=== PATIENT | female | born 1970 | race American Indian/Alaskan Native ===

== ENCOUNTER 2018-09-04 11:03 | Outpatient (CLI) | payer BC ==
--- NOTE | 2018-09-04 13:48 | Ultrasound Report ---
ULTRASOUND OB LESS THAN 14 WEEKS THE FETUS ULTRASOUND OB TRANSVAGINAL History: Menorrhagia, positive test at doctor's office. Findings: Transabdominal and transvaginal ultrasound imaging was performed. The uterus measures 9 x 5 x 5 cm. A small intramural fibroid measuring 1.6 cm is noted in the anterior wall. The endometrial stripe is normal thickness. A small intrauterine gestational sac containing a small yolk sac was identified. No convincing pole or heart tones could be demonstrated. Gestational sac diameter measures 8.3 mm which correlates with a 5 week, 4 day . No subchorionic hemorrhage. The ovaries are normal size, contour and echotexture. No pelvic fluid collection. IMPRESSION: Early intrauterine is suspected and estimated at 5 weeks, 4 days. Close interval followup is recommended.
== END 2018-09-04 11:04 | disposition home or self-care (01) ==
LOC: US 11:03
DX: O09.91 Supervision of high risk pregnancy, unspecified, first trimester (principal); Z3A.01 Less than 8 weeks gestation of pregnancy
CPT/HCPCS: 76801; 76817

== ENCOUNTER 2020-06-16 08:52 | Outpatient (CLI) | payer BC ==
--- NOTE | 2020-06-19 08:31 | Mammography Report ---
DIGITAL SCREENING MAMMOGRAM WITH CAD, 06/16/2020 CLINICAL INFORMATION / INDICATION: Routine screening mammography. TECHNIQUE: Digital bilateral 2D mammography was obtained in the craniocaudal and mediolateral obliqu e projections. This examination was interpreted with the benefit of Computer-Aided Detection analysis . COMPARISON: None available. FINDINGS: Breast Density: There are scattered areas of fibroglandular density. No dominant mass, suspicious calcifications, or architectural distortion in either breast. IMPRESSION: No mammographic evidence of malignancy. Follow up recommendation: Routine yearly BI-RADS Category 1: Negative. A "normal" or negative report should not discourage follow up or biopsy of a clinically significant f inding. A written summary of these findings will be mailed to the patient. The patient will be entered into a mammography reporting system which will generate a reminder letter for the patient's next appointmen t at the appropriate interval. The [employer] recommends yearly mammograms starting at age 40 and continuing as l shana as a woman is in good health. Breast MRI is recommended for women with an approximate 20-25% or greater lifetime risk of breast cancer, including women with a strong family history of breast or ova edilberto cancer or who have been treated for Hodgkin's disease. Signer Name: Mina Boyd MD Signed: 06/19/2020 8:27 AM Workstation Name: [id number]
== END 2020-06-16 08:53 | disposition home or self-care (01) ==
LOC: SPVWC 08:52
PROVIDERS: ATTEND Obstetrics & Gynecology
DX: Z12.31 Encounter for screening mammogram for malignant neoplasm of breast (principal)
CPT/HCPCS: 77067

== ENCOUNTER 2020-09-08 07:44 | Observation (INO) | payer BC ==
--- NOTE | 2020-09-05 12:14 | History and Physical Report ---
History of Present Illness Date of examination: 09/01/20 Date of admission: 09/08/20 Chief complaint: referred by KELLEN History of present illness: Visit Type: Pre-Op CC: pre op. History of Present Illness: pt presents for pre op visit: Hysteroscopy, D&C, Myosure.. ....................................................................Janna Leo September 01, 2020 2:06 PM Mask, Patient denies fever, cough, shortness of breath and exposure to COVID-19. Patient is here for pre op for hysteroscopy with myosure removal of endometrial mass noted on hsg and SIS performed for KELLEN at [facility] on 05/19/20. It was recommened pt undergo hysteroscopic removal prior to proceeding with next step in fertilty treatment. She denies any changes in her periods and does not have any pain. All risk/benefits/alternatives were d/w pt and questions were addressed and answered. Consents were signed and presented to patient to bring to hospital at time of her procedure. Vital Signs: Patient Profile: 49 Years Old Female LMP: 08/04/2020 Height: 65 inches Weight: 252 pounds BMI: 41.93 Temp: 98.0 degrees F BP sittin / 82 (left arm) Menstrual History: LMP (date): 08/04/2020 Current Method of Contraception: None [OB-New Pt-Past Preg Hx-CCC] [employer] DISP[employer]ER History Uterine Surgery (not C/S): negative Operations: positive Hospitalizations: negative Anesthesia Complications: negative Abnormal PAP: unknown Uterine Anomaly: negative JORGITO Exposure: negative Infertility: negative Infection History HIV Risk Eval: no Personal hx. 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 Risk Factors: Smoked Tobacco Use: Never smoker Smokeless Tobacco Use: Never Drug use: no HIV high-risk behavior: no Alcohol use: no Exercise: no Seatbelt use: 100 % Review of Systems General Denies fever, chills, sweats, anorexia, fatigue, weakness, malaise, weight loss and sleep disorder. Denies nausea, vomiting, headache, swelling of legs, abdominal pain, vaginal discharge, vaginal bleeding and contractions. Denies vaginal discharge, incontinence, dysuria, hematuria, urinary frequency, amenorrhea, menorrhagia, abnormal vaginal bleeding, pelvic pain, genital sores, decreased libido, painful periods, painful sex, urinary urgency, hot flashes, vaginal dryness, vaginal itching and vaginal odor. CV Denies chest pains, palpitations, syncope, dyspnea on exertion, orthopnea, PND and peripheral edema. Resp Denies cough, dyspnea at rest, excessive sputum, hemoptysis, wheezing and pleurisy. GI Denies nausea, vomiting, diarrhea, constipation, change in bowel habits, abdominal pain, melena, hematochezia, jaundice, gas/bloating, indigestion/heartburn, dysphagia and odynophagia. Endo Denies cold intolerance, heat intolerance, polydipsia, polyphagia, polyuria and unusual weight change. Breast Denies left breast lump, right breast lump, nipple discharge, bloody discharge from nipple, breast pain, abnormal mammogram and breast enlargement. MS Denies back pain, joint pain, joint swelling, muscle cramps, muscle weakness, stiffness, arthritis, sciatica, restless legs, leg pain at night and leg pain with exertion. Derm Denies rash, itching, dryness and suspicious lesions. Neuro Denies paralysis, paresthesias, headache, seizures, tremors, vertigo, transient blindness, frequent falls, frequent headaches and difficulty walking. Psych Denies depression, anxiety, irritability and mood swings. Eyes Denies blurring, diplopia, irritation, discharge, vision loss, eye pain and photophobia. ENT Denies earache, ear discharge, tinnitus, decreased hearing, nasal congestion, nosebleeds, sore throat and hoarseness. Allergy Denies urticaria, allergic rash, hay fever and recurrent infections. Heme Denies abnormal bruising, bleeding and enlarged lymph nodes. [Labs In-House] Physical Exam Appearance: well developed, well nourished, no acute distress Other Exams Lungs: no rales, rhonchi, or wheezes Abdomen: soft, non-tender, no masses, bowel sounds normal Extremities: normal alignment, no joint enlargement, crepitus, masses or tenderness; normal tone and strength Genitourinary Exam Comments: deferred until EUA Past History Past Medical History: diabetes, other (obesity) Past Surgical History: other (see hpi) [employer] DISP[employer]ER History: other (see hpi) Family/Genetic History: other (see hpi) Social history: other (see hpi) Medications and Allergies Allergies Allergy/AdvReac Type Severity Reaction Status Date / Time No Known Allergies Allergy Unverified 09/04/20 14:22 Home Medications Medication Instructions Recorded Confirmed Last Taken Type Acetaminophen [Non-Aspirin Extra 500 mg PO Q8H PRN #12 tablet 09/09/18 09/04/20 Unknown Rx Strength] guaiFENesin [Mucinex] 600 mg PO Q12H PRN #10 tab.er.12h 09/09/18 09/04/20 Unknown Rx Sitagliptin Phos/Metformin HCl 1 tab PO BID 09/04/20 09/04/20 Unknown History [Janumet 50-1,000 mg Tablet] Review of Systems All systems: negative - Physical Exam Breasts: Positive: deferred Cardiovascular: Normal S1, Normal S2 Lungs: Positive: Clear to auscultation, Normal air movement Abdomen: Positive: normal appearance, soft. Negative: distention, tenderness, guarding Genitourinary (Female): Positive: other (deferred until EUA) Results All other labs normal. Assessment and Plan - Patient Problems (1) Endometrial mass Status: Acute Plan to address problem: -admit and prepare for hysteroscopy with myosure removal of mass and D&C -all risk, benefits and alternatives were d/w pt and questions were addressed and answered -consents signed and placed on the chart.
[~2020-09-08 07:44] MED LIST: ceFAZolin/Water 2 GM/20 ML 2 GM/20 ML SYRINGE IV NR
[2020-09-08] MEDS ORDERED: SILVER NITRATE APPLICATOR 1 EA TP ONE (08:40)
[2020-09-08] MEDS ORDERED: ONDANSETRON 4 MG/2 ML INJ IV PRN (08:54)
[2020-09-08] MEDS ORDERED: HYDROmorphone 1 MG/1 ML INJ IV PRN ×2 (08:54)
--- NOTE | 2020-09-08 08:56 | Anesthesia Day of Surgery ---
Anesthesia Day of Surgery - Day of Surgery Patient Examined: Yes Patient H&P Reviewed: Yes Patient is NPO: Yes
--- NOTE | 2020-09-08 08:58 | Anesthesia Consultation ---
Anesthesia Consult and Med Hx Date of service: 09/08/20 - Airway Anesthetic Teeth Evaluation: Chipped (Broken) ROM Head & Neck: Adequate Mental/Hyoid Distance: Adequate Mallampati Class: Class II Intubation Access Assessment: Good - Pre-Operative Health Status ASA Pre-Surgery Classification: ASA3 Proposed Anesthetic Plan: General - Pulmonary Hx Smoking: No Hx Respiratory Symptoms: No - Central Nervous System Hx Psychiatric Problems: No - Gastrointestinal Hx Gastroesophageal Reflux Disease: Yes (Dietary) - Endocrine Hx Non-Insulin Dependent Diabetes: Yes - Hematic Hx Anemia: Yes - Other Systems Hx Cancer: No Hx Obesity: Yes
[2020-09-08] MEDS ORDERED: LACTATED RINGERS 1,000 ML IV SCH (09:00)
[2020-09-08] MEDS ORDERED: dexAMETHasone 20 MG/5 ML VIAL ONE (09:00)
[2020-09-08] MEDS ORDERED: KETOROLAC 30 MG/1 ML INJ ONE (09:04)
[2020-09-08] MEDS ORDERED: LIDOCAINE MPF (2%) 20 MG/1 ML VIAL 5 ML ONE (09:04)
[2020-09-08] MEDS ORDERED: fentaNYL 100 MCG/2 ML INJ ONE (09:05)
[2020-09-08] MEDS ORDERED: propofoL 200 MG/20 ML VIAL IV ONE (09:05)
[2020-09-08] MEDS ORDERED: SODIUM CHLORIDE 0.9% IRR 1,500 ML BOTTLE IR ONE (09:52)
[2020-09-08] MEDS ORDERED: ACETAMINOPHEN 325 MG TAB PO PRN (10:13)
[2020-09-08] MEDS ORDERED: IBUPROFEN 800 MG TAB PO PRN (10:13)
--- NOTE | 2020-09-08 10:13 | Event Note ---
Date: 09/08/20 Pt noted to have deficit of 1850 with approximatly 200cc being on the floor during the procedure for a total of 1650. Will admit this time for observation and monitoring or electrolytes. If pt remains stable will plan for d/c this pm or in the am.
--- NOTE | 2020-09-08 10:24 | Operative Report ---
Operative Report Operative Report: Date of procedure: 09/08/2020 Pre-operative diagnosis: Endometrial mass Post-operative diagnosis: Endometrial mass Rater than 1 L fluid deficit Procedure name(s): Hysteroscopy Myosure Dilatation and curettage Surgeon: Dr. Rob Loss Control Technician: Certified surgical scrub clinical nursing assistant Anesthesia: Gen. endotracheal anesthesia EBL:l minimal Urine output: Approximately 50 mL out prior to the onset of the procedure Fluids: 500 mL of LR 1850 mL fluid deficit recorded with approximately 200 mL of fluid noted on the floor. Findings: Thickened endometrium What appeared to be a small 1-1.5cm endometrial polyp versus fibroid Indications: Patient was being evaluated by KELLEN and underwent a saline infused sonogram that showed an endometrial mass. Patient presented for removal of mass to further her treatment for fertility. Procedure: Patient was taken to the operating room where she was placed under general anesthesia. She was placed in dorsal lithotomy position with legs in Gonzalez stirrups. She was then prepped and draped in sterile fashion. Patient underwent straight catheterization the anterior lip of the cervix was grasped with a tenaculum and the uterus was sounded to approximately 8 cm cm. As at this point that the cervix was dilated to allow the passage of a Myosure hysteroscope. Hysteroscopy with MyoSure removal of the mass was performed. The procedure was not completed due to fluid deficit. Evaluation of the internal uterine cavity did not show any uterine perforation. There was what appeared to be tracks that were made in the thickened endometrial tissue however pre paration beyond these tracts could not be confirmed. It was at this point that the dilatation and curettage was performed. Uterine cavity was noted to have a gritty texture at the end of the curettage. Curettage was performed with a smooth edge and not the serrated edge curette. Hemostasis was noted to be excellent. Patient was taken to the recovery room awake and in stable condition. Patient was given Ancef prior to the onset of the procedure. All laps and needle counts were correct. Patient tolerated the procedure well. Patient family was notified and updated on patient status to remain in-house for close observation due to the fluid deficit that was noted.
[2020-09-08 10:58] LABS: Basophils # (Auto) 0.1 K/mm3 (0.0-0.1); Basophils % (Auto) 0.8 % (0.0-1.8); Eosinophils # (Auto) 0.1 K/mm3 (0.0-0.4); Eosinophils % (Auto) 1.3 % (0.0-4.3); Hematocrit 33.7 % (30.3-42.9); Hemoglobin 11.1 gm/dl (10.1-14.3); Lymphocytes % (Auto) 29.1 % (13.4-35.0); Mean Corpuscular HGB Conc 33 % (30-34); Mean Corpuscular Volume 77 fl (79-97); Monocytes # (Auto) 0.2 K/mm3 (0.0-0.8); Monocytes % (Auto) 3.6 % (0.0-7.3); Platelet Count 234 K/mm3 (140-440); Red Blood Count 4.39 M/mm3 (3.65-5.03); Red Cell Distribution Width 16.9 % (13.2-15.2)
[2020-09-08] MEDS ORDERED: ceFAZolin/NS 1 GM/50 ML 1 GM/50 ML BAG IV SCH ×2 (11:00→15:00)
[2020-09-08] MEDS ORDERED: hydrALAZINE 20 MG/1 ML INJ ONE (11:04)
--- NOTE | 2020-09-08 11:04 | Post Anesthesia Evaluation ---
- Post Anesthesia Evaluation Patient Participated: Yes Airway Patent: Yes Stable Respiratory Function: Yes Nausea/Vomiting: No Temp > 96.8F: Yes Pain Manageable: Yes Adequeate Hydration: Yes Anesthesia Complications: No Block Receding Appropriately: Not Applicable Patient on Ventilator: No
[2020-09-08] MEDS ORDERED: hydrALAZINE 20 MG/1 ML INJ IV ONE (11:08)
[2020-09-08 11:14] LABS: Alanine Aminotransferase 13 units/L (7-56); Albumin 3.7 g/dL (3.9-5); BUN/Creatinine Ratio 16; Blood Urea Nitrogen 13 mg/dL (7-17); Calcium 8.6 mg/dL (8.4-10.2); Hemolysis Index 7
--- NOTE | 2020-09-08 11:24 | Event Note ---
Date: 09/08/20 Labs reviewed and are normal. Will monitor for a few more hours and if stable, will d/c this pm.
[2020-09-08 12:24] VITALS: BP 154/85
--- NOTE | 2020-09-08 17:08 | Short Stay Summary ---
Short Stay Documentation Date of service: 09/08/20 - History H&P: obtained from office Social history: other (see hpi) - Allergies and Medications Current Medications: Allergies No Known Allergies Allergy (Unverified 09/04/20 14:22) Home Medications Medication Instructions Recorded Confirmed Last Taken Type RX: Acetaminophen [Non-Aspirin 500 mg PO Q8H PRN #12 tablet 09/09/18 09/08/20 08/25/20 08:00 Rx Extra Strength] Sitagliptin Phos/Metformin HCl 1 tab PO BID 09/04/20 09/08/20 09/07/20 17:00 History [Janumet 50-1,000 mg Tablet] RX: Ibuprofen [Motrin 800 MG tab] 800 mg PO Q8HR PRN #30 tablet 09/08/20 Unknown Rx Active Medications Acetaminophen (Acetaminophen 325 Mg Tab) 650 mg PO Q4H PRN PRN Reason: Pain, Mild (1-3) Hydromorphone HCl (Hydromorphone 1 Mg/1 Ml Inj) 0.25 mg IV Q10MIN PRN PRN Reason: Pain, Moderate (4-6) Hydromorphone HCl (Hydromorphone 1 Mg/1 Ml Inj) 0.5 mg IV Q10MIN PRN PRN Reason: Pain , Severe (7-10) Cefazolin Sodium (Ancef/Sterile Water 2 Gm/20 Ml) 2 gm in 20 mls @ 80 mls/hr IV PREOP NR; Protocol Stop: 09/08/20 20:00 Lactated Ringer's (Lactated Ringers) 1,000 mls @ 125 mls/hr IV DIRECT NKECHI Last Admin: 09/08/20 09:00 Dose: 125 mls/hr Documented by: Cefazolin Sodium (Ancef/Ns 1 Gm/50 Ml) 1 gm in 50 mls @ 100 mls/hr IV Q8H NKECHI; Protocol Stop: 09/08/20 23:29 Ibuprofen (Ibuprofen 800 Mg Tab) 800 mg PO Q8H PRN PRN Reason: Pain, Mild (1-3) Ondansetron HCl (Ondansetron 4 Mg/2 Ml Inj) 4 mg IV ONCE PRN PRN Reason: Nausea And Vomiting - Physical exam Breasts: deferred - Brief post op/procedure progress note Date of procedure: 02/12/21 Pre-op diagnosis: endometrial mass Post-op diagnosis: other (fluid deficiet of >1L) Procedure: hysteroscopy myosure removal of endometrial mass D&C Anesthesia: GETA Findings: see op note Supervisor [employer]: ARASH MONTERO Estimated blood loss: none Pathology: list (endometrial mass: uterine tissue) Specimen disposition: to lab Condition: stable - Hospital course Hospital course: Pt underwent above stated procedure and had fluid deficient of >1L. Pt remained stable and showed no signs or symptoms of fluid over load. She had labs done were normal. Post op course was not complicated. Pt will be d/c from the floor today with f/u in the office in one week. Surgery findings and procedure was d/w - Discharge Diagnoses (1) Endometrial mass Status: Acute Short Stay Discharge Plan Follow up with: ARASH MONTERO MD [Staff Physician] - 7 Days Forms: [facility] Discharge Summary Prescriptions: Ibuprofen [Motrin 800 MG tab] 800 mg PO Q8HR PRN #30 tablet PRN Reason: Pain, Moderate (4-6)
== END 2020-09-08 18:03 | disposition home or self-care (01) ==
LOC: OR 07:44 → OB 10:13
PROVIDERS: ADMIT Obstetrics & Gynecology; ATTEND Obstetrics & Gynecology
DX: N94.89 Other specified conditions associated with female genital organs and menstrual cycle (principal); Z20.822 Contact with and (suspected) exposure to COVID-19; N85.9 Noninflammatory disorder of uterus, unspecified; E11.9 Type 2 diabetes mellitus without complications; E66.9 Obesity, unspecified; Z79.82 Long term (current) use of aspirin; Z79.84 Long term (current) use of oral hypoglycemic drugs; Z68.41 Body mass index [BMI] 40.0-44.9, adult
CPT/HCPCS: 36415; 58558; 80053; 81025; 82962; 85025; 88305; 96365; 96375; C1782; G0378; J0360; J0690; J1100; J1885; J2405; J2704; J3010; J7120; U0003

== ENCOUNTER 2021-06-18 08:04 | Outpatient (CLI) | payer BC ==
--- NOTE | 2021-06-18 15:25 | Mammography Report ---
DIGITAL SCREENING MAMMOGRAM WITH CAD, 06/18/2021 CLINICAL INFORMATION / INDICATION: Routine screening mammography. TECHNIQUE: Digital bilateral 2D mammography was obtained in the craniocaudal and mediolateral obliqu e projections. This examination was interpreted with the benefit of Computer-Aided Detection analysis . COMPARISON: 06/16/2020 FINDINGS: Breast Density: There are scattered areas of fibroglandular density. No dominant mass, suspicious calcifications, or architectural distortion in either breast. Normal-appearing intramammary lymph node is again noted in the right breast. There has been no signif icant interval change. IMPRESSION: No mammographic evidence of malignancy. Follow up recommendation: Routine yearly BI-RADS Category 2: Benign. A "normal" or negative report should not discourage follow up or biopsy of a clinically significant f inding. A written summary of these findings will be mailed to the patient. The patient will be entered into a mammography reporting system which will generate a reminder letter for the patient's next appointmen t at the appropriate interval. The [employer] recommends yearly mammograms starting at age 40 and continuing as l shana as a woman is in good health. Breast MRI is recommended for women with an approximate 20-25% or greater lifetime risk of breast cancer, including women with a strong family history of breast or ova edilberto cancer or who have been treated for Hodgkin's disease. Signer Name: Maria Guadalupe Saravia MD Signed: 06/18/2021 3:21 PM Workstation Name: [id number]
== END 2021-06-18 08:05 | disposition home or self-care (01) ==
LOC: SPVWC 08:04
PROVIDERS: ATTEND Obstetrics & Gynecology
DX: Z12.31 Encounter for screening mammogram for malignant neoplasm of breast (principal); R59.0 Localized enlarged lymph nodes
CPT/HCPCS: 77067